=== PATIENT | male | born 1960 | race Caucasian/White ===

== ENCOUNTER 2017-09-25 13:15 | Observation (INO) | payer OTHER ==
[2017-09-25] MEDS ORDERED: NS 1,000 ML IV ONE (13:18)
[2017-09-25] MEDS ORDERED: ASPIRIN EC 325 MG TAB PO ONE (13:18)
[2017-09-25] MEDS ORDERED: diphenhydrAMINE 25 MG CAP PO ONE (13:18)
[2017-09-25] MEDS ORDERED: DIAZEPAM 5 MG TAB PO ONE (13:18)
[2017-09-25] MEDS ORDERED: FAMOTIDINE 20 MG TAB PO ONE (13:18)
--- NOTE | 2017-09-25 13:55 | CPEKG ---
Heart Rate: 74 RR Interval: 811 P-R Interval: 176 QRSD Interval: 84 QT Interval: 380 QTC Interval: 422 P [place]: 68 QRS [place]: 48 T Wave [place]: 37 EKG Severity - ABNORMAL ECG - EKG Impression: SINUS RHYTHM EKG Impression: MULTIPLE ATRIAL PREMATURE COMPLEXES EKG Impression: Agree with above Electronically Signed By: Maximus Friend 25-Sep-2017 18:06:19
[2017-09-25 14:14] LABS: % IMMATURE GRANULYOCYTES 0.1 % (0.0-1.1); ABSOLUTE IMMATURE GRANULOCYTES 0.01 10^3/uL (0.00-0.10); ADD DIFF? NO; ADD MORPH? NO; ADD SCAN? NO; ATYPICAL LYMPHOCYTE FLAG 10 (0-99); FRAGMENT RBC FLAG 0 (0-99); HEMATOCRIT 40.7 % (40.0-51.0); HEMOGLOBIN 14.3 g/dL (13.7-17.5); LEFT SHIFT FLG 0 (0-99); LIPEMIA HEMOLYSIS FLAG 90 (0-99); MEAN CELL HEMOGLOBIN 32.4 pg (27.9-34.1); MEAN CELL HEMOGLOBIN CONCENTR. 35.1 g/dL (32.4-36.7); MEAN CELL VOLUME 92.3 fL (81.5-99.8); MEAN PLATELET VOLUME 9.4 fL (8.7-11.7); PLATELET CLUMPS FLAG 10 (0-99); PLATELET COUNT 241 10^3/uL (150-400); RED BLOOD CELL COUNT 4.41 10^6/uL (4.40-6.38); RED CELL DISTRIBUTION WIDTH 11.9 % (11.5-15.2)
[2017-09-25 14:19] LABS: INR 1.04 (0.83-1.16); PROTIME(PATIENT) 13.5 SEC (12.0-15.0)
[2017-09-25] MEDS ORDERED: MIDAZOLAM 2 MG/2 ML VIAL ONE ×2 (14:32→15:47)
[2017-09-25] MEDS ORDERED: fentaNYL 100 MCG/2 ML INJ ONE (14:32)
[2017-09-25] MEDS ORDERED: LIDOCAINE 1% 300 MG/30 ML SDV ONE (14:32)
[2017-09-25] MEDS ORDERED: IOPAMIDOL (ISOVUE-370) 150 ML BTL IV ONE ×3 (14:33→16:35)
[2017-09-25] MEDS ORDERED: HEPARIN 10,000 UNIT/10 ML MDV ONE ×2 (14:34→16:35)
[2017-09-25] MEDS ORDERED: VERAPAMIL 5 MG/2 ML VIAL ONE (14:34)
[2017-09-25 14:48] LABS: ANION GAP 12 mEq/L (8-16); CALCIUM 9.4 mg/dL (8.5-10.4); CARBON DIOXIDE 23 mEq/l (22-31); CHLORIDE 104 mEq/L (97-110); CHOLESTEROL 114 mg/dL (140-220); CHOLESTEROL/HDL RATIO 2.53 RATIO (1.00-4.97); CREATININE 0.8 mg/dL (0.7-1.3); GLOMERULAR FILTRATION RATE > 60; GLUCOSE 95 mg/dL (70-100); HIGH DENSITY LIPOPROTEIN 45 mg/dL (40-65); LDL/HDL RATIO 1.22 RATIO (1.00-3.64); LOW DENSITY LIPOPROTEIN 55 mg/dL (80-100); MAGNESIUM 1.9 mg/dL (1.6-2.3); NON-HIGH DENSITY LIPOPROTEIN 69 mg/dL (90-129); POTASSIUM 4.2 mEq/L (3.5-5.2); SODIUM 139 mEq/L (134-144); TRIGLYCERIDE 71 mg/dL (40-150); VERY LOW DENSITY LIPOPROTEINS 14 mg/dL (8-25)
--- NOTE | 2017-09-25 14:54 | PDHPUP ---
History & Physical Update H&P update statement: This history and physical update is based on an assessment of the patient which was completed after admission or registration (within 24 hours), but prior to the surgery/procedure. H&P update: H&P reviewed & patient examined, no change in patient's condition since H&P completed
--- NOTE | 2017-09-25 14:54 | PDPROPOC ---
Sedation Plan of Care Sedation Plan of Care: vital signs stable, mental status noted, patient educated of risks, benefits, alternatives, patient can tolerate sedation ASA Classification: ASA 1 Planned drugs: fentanyl, midazolam Mallampati Score: Class 1 Mallampati Reference Image: Patient passed 3-3-2 rule?: Yes
[2017-09-25] MEDS ORDERED: NITROGLYCERIN 1,500 MCG/15 ML VIAL MISC ONE (15:26)
--- NOTE | 2017-09-25 15:49 | PDDXCAT ---
Diagnostic Cath Note - . Date: 09/25/17 Food And Nutrition Supervisor: Jerri Indication: other (New onset [place] [employer] class 3 angina. Known coronary artery disease with previous LAD diagonal crush PCI 10 years ago. Unable to advance medical therapy due to tenuous hemodynamics.) - Procedure Access: right wrist Procedure: left heart catheterization, coronary angiography, left ventriculogram - Materials Left Heart Cath size: 5F Left Heart Cath materials: JL3.5, JR4.0 - Findings-Left Heart Catheterization LM: Normal caliber. Appropriate bifurcation into the LAD and circumflex. Angiographically free of disease. LAD: Large caliber transapical vessel. Multiple small insignificant proximal diagonal branches. Single major principal diagonal branch. Previous mid LAD/ diagonal PCI using a crush technique is noted. There is minimal ostial diagonal restenoses about 30-40%. Otherwise, the LAD and its diagonal branches do not contain any significant disease. LCX: Diminutive vessel. Single proximal 1st obtuse marginal branch after which the obtuse marginal is no longer present. Minimal luminal irregularities with no obstructive lesions. RCA: Large caliber vessel. Dominant. The PDA and 2 posterolateral branches are noted. There is a high-grade (greater than 90%) lesion noted immediately prior to the origin of the posterior descending artery. EDP: Left ventricular pressure 114/13/18 mmHg. LVEF: 70%. Normal wall motion. No significant mitral regurgitation. - Findings-Right Heart Catheterization AO: Aortic pressure 111/69/88 mmHg. Complications: None. Estimated blood loss: <50ml Closure method: TR Band Assessment: Her high-grade, subtotal lesion noted in the right coronary artery immediately prior to the crux. Known coronary artery disease with new onset [place] cardiovascular [employer] class 3 angina as noted above. Plan: She will be referred to interventional Cardiology for consideration of PCI of the right coronary artery. Intervention: For details of the intervention see the fully dictated report by Dr. Sage Ortiz.
[2017-09-25] MEDS ORDERED: PRASUGREL HCL 10 MG TAB ONE (16:46)
[2017-09-25] MEDS ORDERED: ATROPINE SULFATE 1 MG/10 ML SYR IVP PRN (17:51)
[2017-09-25] MEDS ORDERED: TEMAZEPAM 15 MG CAP PO PRN (17:51)
[2017-09-25] MEDS ORDERED: PRASUGREL HCL 10 MG TAB PO ONE (17:51)
[2017-09-25] MEDS ORDERED: ONDANSETRON 4 MG/2 ML VIAL IVP PRN (17:51)
[2017-09-25] MEDS ORDERED: HYDROCODONE/APAP 5/325 TAB PO PRN (17:51)
[2017-09-25] MEDS ORDERED: NITROGLYCERIN 0.4 MG BTL SL PRN (17:51)
[2017-09-25] MEDS ORDERED: ACETAMINOPHEN 325 MG TAB PO PRN (17:51)
[2017-09-25] MEDS ORDERED: NS 1,000 ML IV SCH (18:00)
--- NOTE | 2017-09-25 18:13 | CPEKG ---
Heart Rate: 68 RR Interval: 882 P-R Interval: 184 QRSD Interval: 80 QT Interval: 400 QTC Interval: 426 P [place]: 58 QRS [place]: 42 T Wave [place]: 54 EKG Severity - OTHERWISE NORMAL ECG - EKG Impression: SINUS RHYTHM EKG Impression: ATRIAL PREMATURE COMPLEX EKG Impression: AGRRE WITH ABOVE. NO SIGNIFICANT CHANGS FROM SEPTEMBER 25, 2017. Electronically Signed By: Maximus Friend 26-Sep-2017 07:41:24
--- NOTE | 2017-09-25 18:26 | PDDXCAT ---
Diagnostic Cath Note - . Date: 09/25/17 Head Turning Machine Operator: Angel (CCS class II to III angina despite medical therapy; CAD with h/o prior PCI.) - Procedure Access: right wrist Complications: None Estimated blood loss: <50ml Closure method: TR Band Assessment: Successful PCI of the distal RCA using a single drug coated stent. Intervention: Please referred to the diagnostic cardiac cath report prepared by Dr. Esequiel Guthrie. Briefly, Mr. Kamara is a 57-year-old male with a prior bifurcation PCI of the LAD-diagonal performed 10 years ago. He presented with complaints of recurrent exertional angina despite medical therapy. Diagnostic catheterization demonstrated that his LAD-diagonal "crush technique" stent site was patent. The circumflex had noncritical disease. The RCA had a greater than 90% stenosis at the crux just prior to the origin of the posterior descending branch. The RCA continued on to supply a multi-branched posterolateral system. Based on the patient's clinical history and diagnostic angiography, the decision was made to perform PCI of the RCA. The patient received additional intravenous heparin. A 6 [place] AR-1 guide catheter was advanced to the RCA ostium. An Intuition guidewire was advanced to the distal RCA. Predilatation of the target lesion was performed using a 3.0 x 12 mm Emerge balloon. A 3.5 x 20 mm Synergy drug-coated stent was advanced into position and was deployed at high pressure. The stent was postdilated with a 3.5 x 12 mm [place] Emerge balloon. Subsequent angiograms demonstrated 0% residual stenosis at the target lesion. The posterior descending branch was now in " stent residential" and demonstrated a high grade ostial stenosis. Numerous attempts using several different wires were made to pass a guidewire through "stent residential " into the posterior descending branch. Finally, a [employer] guidewire was advanced into the posterior descending branch. However, attempts to track a 2.5 x 12 mm Emerge balloon were unsuccessful due to significant resistance encountered prior to the origin of the posterior descending branch suggesting that the guidewire had possibly traversed beneath one or more of the stent struts. The patient remained stable without angina, ECG changes, or arrhythmias. Therefore it was elected to terminate the procedure rather than run the risk of a serious complication. If the patient continues to have angina in the future, consideration could be given to a repeat attempt at angioplasty of the PDA ostium.
[2017-09-25] MEDS ORDERED: ATORVASTATIN CALCIUM 40 MG TAB PO SCH (21:00)
[2017-09-25] MEDS ORDERED: MULTIVITAMINS 1 EACH TAB PO SCH (21:00)
[2017-09-25] MEDS ORDERED: TAMSULOSIN HCL 0.4 MG CAP PO SCH (21:00)
[2017-09-26 04:21] VITALS: TEMP 98.4
[2017-09-26 05:25] LABS: % IMMATURE GRANULYOCYTES 0.2 % (0.0-1.1); ABSOLUTE IMMATURE GRANULOCYTES 0.02 10^3/uL (0.00-0.10); ADD DIFF? NO; ADD MORPH? NO; ADD SCAN? NO; ATYPICAL LYMPHOCYTE FLAG 0 (0-99); FRAGMENT RBC FLAG 0 (0-99); HEMATOCRIT 38.3 % (40.0-51.0); HEMOGLOBIN 13.5 g/dL (13.7-17.5); LEFT SHIFT FLG 0 (0-99); LIPEMIA HEMOLYSIS FLAG 90 (0-99); MEAN CELL HEMOGLOBIN 32.5 pg (27.9-34.1); MEAN CELL HEMOGLOBIN CONCENTR. 35.2 g/dL (32.4-36.7); MEAN CELL VOLUME 92.3 fL (81.5-99.8); MEAN PLATELET VOLUME 9.7 fL (8.7-11.7); PLATELET CLUMPS FLAG 10 (0-99); PLATELET COUNT 220 10^3/uL (150-400); RED BLOOD CELL COUNT 4.15 10^6/uL (4.40-6.38); RED CELL DISTRIBUTION WIDTH 11.9 % (11.5-15.2)
[2017-09-26 05:54] LABS: ALBUMIN 3.4 g/dL (3.5-5.0); ANION GAP 12 mEq/L (8-16); ASPARTATE AMINOTRANSFERASE 26 IU/L (17-59); BILIRUBIN,TOTAL 0.7 mg/dL (0.1-1.4); CALCIUM 8.6 mg/dL (8.5-10.4); CARBON DIOXIDE 20 mEq/l (22-31); CHLORIDE 107 mEq/L (97-110); CREATININE 0.7 mg/dL (0.7-1.3); GLOMERULAR FILTRATION RATE > 60; GLUCOSE 92 mg/dL (70-100); LACTATE DEHYDROGENASE 424 IU/L (313-618); MAGNESIUM 1.9 mg/dL (1.6-2.3); SODIUM 139 mEq/L (134-144)
[2017-09-26 08:08] VITALS: BP 118/72; PULSE 77; RESP 13; O2SAT 96
[2017-09-26] MEDS ORDERED: EZETIMIBE 10 MG TAB PO SCH (09:00)
[2017-09-26] MEDS ORDERED: PRASUGREL HCL 10 MG TAB PO SCH (09:00)
[2017-09-26] MEDS ORDERED: ASPIRIN EC 325 MG TAB PO SCH (09:00)
[2017-09-26] MEDS ORDERED: LISINOPRIL 10 MG TAB PO SCH (09:00)
--- NOTE | 2017-09-26 09:02 | CPEKG ---
Heart Rate: 73 RR Interval: 822 P-R Interval: 164 QRSD Interval: 82 QT Interval: 368 QTC Interval: 406 P [place]: 73 QRS [place]: 65 T Wave [place]: 69 EKG Severity - NORMAL ECG - EKG Impression: SINUS RHYTHM EKG Impression: No significant change from September 25, 2017, with the exception of no PACs. Electronically Signed By: Maximus Friend 26-Sep-2017 09:57:18
--- NOTE | 2017-09-26 12:02 | GDS ---
[f rep st] DISCHARGE SUMMARY REASON FOR ADMISSION: Coronary artery disease. HOSPITAL COURSE: Please refer to Dr. Esequiel Guthrie's recent office note, which serves as the admission h istory and physical for this hospital encounter. Please also refer to Dr. Guthrie's diagnostic cardiac catheterization report and my interventional cardiac catheterization report. Briefly, the patient is a 57-year-old male with a history of coronary artery disease. He has a histo ry of a previous LAD-diagonal bifurcation PCI performed 10 years ago. He was seen in the office and reported consistent episodes of exertional chest discomfort over the past few weeks. On basis of his known CAD and new clinical symptoms, Dr. Guthrie scheduled the patient for cardiac catheterization. T hat study demonstrated normal left ventricular systolic function. The previous LAD-bifurcation PCI s ite was widely patent. The circumflex had noncritical disease. The patient had a large, hyper domin ant RCA with a focal greater than 90% lesion at the crux just prior to the origin of the posterior de scending branch. Based on his clinical history and diagnostic angiography, Dr. Guthrie asked me to per form PCI. The patient underwent PCI with placement of a 3.5 x 20 mm Synergy drug-coated stent in the distal RCA. The ostium of the posterior descending branch was now in "stent penitentiary" and had a high-gr juan luis ostial stenosis. Multiple attempts were made to perform angioplasty of the ostium of the PDA. A fter multiple tries, a guidewire was successfully negotiated into the posterior descending branch but a balloon could not be tracked into position. Overnight, the patient has had no cardiac symptoms an d no issues with his right radial catheterization site. RECOMMENDATIONS AND DISPOSITION: Patient is discharged in stable condition. He will continue with h is usual heart-healthy dietary and exercise habits. Please refer to the electronic chart for a list of his medications. The only change will be the addition of Effient 10 mg daily. The patient will n eed to be on dual anti-platelet therapy for 12 months. Genetic testing was sent this morning to dete rmine his clopidogrel metabolism. A lipid panel performed yesterday demonstrated a total cholesterol of 114 with HDL 45, LDL 55, and triglycerides 71. He has a followup appointment with Dr. Guthrie on N at 2:45. DISCHARGE DIAGNOSES: 1. Coronary artery disease. 2. Hyperlipidemia. 3. Status post successful percutaneous coronary intervention of the distal right coronary artery usi ng a single drug-coated stent. /[id number]/MODL
--- NOTE | 2017-09-26 12:53 | ASDISCHSUM ---
Discharge Information Plan Status:Home with No Needs Medically Cleared to Leave:09/26/2017 Discharge Date:09/26/2017 11:25 AM CM D/C Disposition: ADT D/C Disposition:Home, Routine, Self-Care Projected Discharge Date:09/26/2017 12:00 AM Transportation at D/C: Discharge Delay Reason: Follow-Up Date:09/26/2017 12:00 AM Discharge Slot: Final Diagnosis: Placement Information Patient Contact Information Contact Name:CATRACHO Relationship: Address:[facility] Work Phone: City:[place] Alternate Phone: [facility]/Zip Code:[place] [address] Email: Financial Information Financial Class:HMO and PPO Plans Primary Plan Desc:[employer] PPO Primary Plan Number:[id number] Secondary Plan Desc: Secondary Plan Number: Assessment Information Intervention Information
== END 2017-09-26 11:25 | disposition home or self-care (01) ==
LOC: FCATH 13:15 → F2W 18:47
PROVIDERS: ADMIT Internal Medicine Interventional Cardiology; ATTEND Internal Medicine Interventional Cardiology
DX: I25.119 Atherosclerotic heart disease of native coronary artery with unspecified angina pectoris (principal); Z95.5 Presence of coronary angioplasty implant and graft; E78.00 Pure hypercholesterolemia, unspecified; I10 Essential (primary) hypertension; I25.2 Old myocardial infarction
CPT/HCPCS: 92928; 93005; 93458; C1725; C1769; C1887; G0378; 81225-90; C1874; C9600; J1644; J2250; J3010; Q9967